=== PATIENT | male | born 1970 ===

== ENCOUNTER 2024-06-21 06:37 | Day surgery (SDC) | payer OTHER ==
[2024-06-21] MEDS ORDERED: fentaNYL CITRATE 50 MCG/ML AMPUL IV PUSH ONE (10:15)
[2024-06-21] MEDS ORDERED: MIDAZOLAM HCL 2 MG/2 ML VIAL IV ONE (10:15)
[2024-06-21] MEDS ORDERED: DIPHENHYDRAMINE HCL 50 MG/ML VIAL 1ML IV ONE (10:15)
== END 2024-06-21 12:00 | disposition home or self-care (01) ==
LOC: AMB-ENDOS 06:37
PROVIDERS: ATTEND Colon & Rectal Surgery
DX: C20 Malignant neoplasm of rectum (principal); Z85.048 Personal history of other malignant neoplasm of rectum, rectosigmoid junction, and anus

== ENCOUNTER 2024-12-05 10:01 | Inpatient (IN) | payer OTHER ==
[~2024-12-05] VITALS: Ht 172.7 cm; Wt 82.6 kg
[2024-12-13] MEDS ORDERED: LIDOCAINE HCL 1%/EPINEPHRINE 20ML VIAL IJ ONE (06:53)
[2024-12-13] MEDS ORDERED: CEFAZOLIN SODIUM 1,000 MG VIAL ONE (07:33)
[2024-12-13] MEDS ORDERED: CEFTRIAXONE SODIUM 2,000 MG VIAL ONE (08:52)
[2024-12-13] MEDS ORDERED: METRONIDAZOLE/SODIUM CHLORIDE 500 MG/100 ML PIGGYBACK IV ONE (08:52)
[2024-12-13] MEDS ORDERED: RINGERS SOLUTION,LACTATED 1,000 ML IV SCH (09:30)
[2024-12-13] MEDS ORDERED: ONDANSETRON HCL 2 MG/ML VIAL IV PRN (09:30)
[2024-12-13] MEDS ORDERED: OxyCODONE HCL 5 MG TABLET (ROXICODONE) PO PRN (09:30)
[2024-12-13] MEDS ORDERED: MORPHINE SULFATE 4 MG/ML CARTRIDGE IV PRN (09:30)
[2024-12-13] MEDS ORDERED: ENALAPRILAT DIHYDRATE 1.25 MG/ML VIAL IV PRN (11:00)
[2024-12-13] MEDS ORDERED: MORPHINE SULFATE 4 MG/ML VIAL IV ONE ×2 (11:25→12:00)
[2024-12-13 12:36] LABS: BASO % 0.3 % (0.1-1.2); EOS # 0.02 (0.04-0.54); EOS % 0.2 % (0.7-7.0); LYMPH # 0.68 (1.18-3.74); LYMPH % 7.7 % (19.3-53.1); MEAN PLATELET VOLUME 9.60 fl (9.4-12.4); MONO # 0.47 (0.24-0.82); MONO % 5.3 % (4.7-12.5); NEUT # 7.66 (1.56-6.13); NEUT % 86.4 % (34.0-71.1); RED CELL DISTRIBUTION WIDTH 12.2 % (11.6-14.4)
[2024-12-13] MEDS ORDERED: SIMETHICONE 125 MG CAPSULE PO SCH (13:00)
[2024-12-13] MEDS ORDERED: HYOSCYAMINE SULFATE 0.125 MG TAB.SUBL SL SCH (13:00)
[2024-12-13] MEDS ORDERED: ACETAMINOPHEN 500 MG GEL..CAP PO SCH (14:00)
[2024-12-13] MEDS ORDERED: CELECOXIB 200 MG CAPSULE PO SCH (17:00)
[2024-12-13] MEDS ORDERED: GABAPENTIN 300 MG CAPSULE PO SCH (17:00)
[2024-12-13] MEDS ORDERED: METOCLOPRAMIDE HCL 5 MG/ML VIAL IV SCH (17:00)
[2024-12-13 18:08] VITALS: BP 90/68; O2SAT 96
[2024-12-13] MEDS ORDERED: FAMOTIDINE/PF 20 MG/2 ML VIAL IV PUSH SCH (21:00)
[2024-12-14 02:29] VITALS: BP 120/78; O2SAT 97
[2024-12-14 06:47] LABS: BASO % 0.3 % (0.1-1.2); EOS # 0.09 (0.04-0.54); EOS % 1.4 % (0.7-7.0); LYMPH # 0.72 (1.18-3.74); LYMPH % 10.9 % (19.3-53.1); MEAN PLATELET VOLUME 9.70 fl (9.4-12.4); MONO # 0.50 (0.24-0.82); MONO % 7.6 % (4.7-12.5); NEUT # 5.24 (1.56-6.13); NEUT % 79.5 % (34.0-71.1); RED CELL DISTRIBUTION WIDTH 12.4 % (11.6-14.4)
[2024-12-14 07:12] LABS: BUN CREA RATIO 13.0 (7.0-25.0); CREATININE SERUM 0.95 mg/dL (0.70-1.30); GFR 83.25; GLUCOSE FASTING 92.0 mg/dL (65-100); OSMOLALITY SERUM 279.0 MOSM/KG (275-295)
[2024-12-14 08:00] VITALS: BP 133/81; O2SAT 96
[2024-12-14] MEDS ORDERED: LACTOBACILLUS ACIDOPHILUS 1 CAP CAP PO SCH (09:00)
[2024-12-14] MEDS ORDERED: LACTULOSE 20 G/30 ML BLIST.PACK PO SCH (09:00)
[2024-12-14 16:00] VITALS: BP 124/84; O2SAT 98
[2024-12-14] MEDS ORDERED: ENOXAPARIN SODIUM 40 MG/0.4 ML SYRINGE SUBCUTANEO SCH (17:00)
[2024-12-15 02:08] VITALS: BP 117/74; O2SAT 97
[2024-12-15 08:00] VITALS: BP 129/78; O2SAT 97
[2024-12-15] MEDS ORDERED: ENOXAPARIN SODIUM 40 MG/0.4 ML SYRINGE SUBCUTANEO SCH (09:00)
[2024-12-15 11:27] LABS: BASO % 0.3 % (0.1-1.2); EOS # 0.13 (0.04-0.54); EOS % 2.2 % (0.7-7.0); LYMPH # 0.63 (1.18-3.74); LYMPH % 10.8 % (19.3-53.1); MEAN PLATELET VOLUME 9.70 fl (9.4-12.4); MONO # 0.44 (0.24-0.82); MONO % 7.5 % (4.7-12.5); NEUT # 4.62 (1.56-6.13); NEUT % 78.9 % (34.0-71.1); RED CELL DISTRIBUTION WIDTH 12.0 % (11.6-14.4)
[2024-12-15 12:18] LABS: BUN CREA RATIO 13.0 (7.0-25.0); CREATININE SERUM 0.84 mg/dL (0.70-1.30); GFR 95.58; GLUCOSE FASTING 128.0 mg/dL (65-100); OSMOLALITY SERUM 279.0 MOSM/KG (275-295)
[2024-12-15] MEDS ORDERED: POTASSIUM PHOS,M-BASIC-D-BASIC 3 MM/ML VIAL IV ONE (14:00)
[2024-12-15 17:57] VITALS: BP 151/81; O2SAT 98
[2024-12-16 01:26] VITALS: BP 116/75; O2SAT 98
[2024-12-16 08:00] VITALS: BP 142/86; O2SAT 95
== END 2024-12-16 16:43 | disposition home or self-care (01) | DRG 331 ==
LOC: SURH 12-13 06:00 → O/R 12-13 06:00 → SURH 12-13 11:45
PROVIDERS: Internal Medicine Geriatric Medicine; ADMIT Colon & Rectal Surgery; ATTEND Colon & Rectal Surgery
PROC: 0DBP4ZZ Excision of Rectum, Percutaneous Endoscopic Approach (ICD-10-PCS; 2024-12-13)
PROC: 07BC4ZZ Excision of Pelvis Lymphatic, Percutaneous Endoscopic Approach (ICD-10-PCS; 2024-12-13)
PROC: 0D1B4Z4 Bypass Ileum to Cutaneous, Percutaneous Endoscopic Approach (ICD-10-PCS; principal; 2024-12-13 15:45)
DX: C20 Malignant neoplasm of rectum (principal)